=== PATIENT | female | born 1975 | race Caucasian/White ===

== ENCOUNTER → 2018-04-30 | Outpatient (CLI) | payer OTHER ==
[2018-04-30 18:20] LABS: HEMATOCRIT 36.6 % (37.0-47.0); MEAN CELL VOLUME 92 fl (78-100); MEAN CORPUSCULAR HEMOGLOBIN 30 pg (27-31); MEAN CORPUSCULAR HGB CONC 33 g/dL (33-37); MEAN PLATELET VOLUME 9.4 fl (7.4-10.4); PLATELET COUNT 285 K/mm3 (130-400); RED BLOOD COUNT 3.98 M/mm3 (4.10-5.30); RED CELL DISTRIBUTION WIDTH 12.4 % (11.5-14.5); WHITE BLOOD COUNT 8.4 K/mm3 (4.8-10.8)
[2018-04-30 19:09] LABS: BAND 1 % (0-10); LYMPHOCYTE 18 % (20-51); MONOCYTE 6 % (3-10); NEUTROPHILS 75 % (42-75)
== END ==
LOC: LAB 17:00
PROVIDERS: Family Medicine
DX: J03.90 Acute tonsillitis, unspecified (principal)

== ENCOUNTER → 2018-06-27 | Outpatient (CLI) | payer OTHER | LOC: RAD 15:15 | DX: M77.52 Other enthesopathy of left foot and ankle (principal) ==

== ENCOUNTER → 2019-05-11 | Outpatient (CLI) | payer OTHER | LOC: LAB 16:45 | DX: J02.9 Acute pharyngitis, unspecified (principal) ==

== ENCOUNTER 2023-01-30 11:58 | Emergency (ER) | payer OTHER ==
[2023-01-30] MEDS ORDERED: ARIPIPRAZOLE10 M1 PO (12:08)
[2023-01-30] MEDS ORDERED: LAMOTRIGINE200 MG PO (12:09)
[2023-01-30] MEDS ORDERED: ATORVASTATIN CA40 MG PO (12:09)
[2023-01-30] MEDS ORDERED: HYDROXYZINE HCL25 M1 PO (12:09)
[2023-01-30] MEDS ORDERED: PRAZOSIN (12:09)
[2023-01-30 12:33] LABS: BASO # 0.02 K/mm3 (0.02-0.10); EOS # 0.12 K/mm3 (0.04-0.40); EOS % 2.2 % (1.0-5.0); HEMATOCRIT 35.8 % (37.0-47.0); HEMOGLOBIN 11.6 g/dL (12.5-16.0); LYMPH# 1.93 K/mm3 (1.50-4.00); MEAN CELL VOLUME 93 fl (78-100); MEAN CORPUSCULAR HEMOGLOBIN 30 pg (27-31); MEAN CORPUSCULAR HGB CONC 32 g/dL (33-37); MEAN PLATELET VOLUME 9.1 fl (7.4-10.4); MONO # 0.39 K/mm3 (0.20-0.80); NEU # 2.93 K/mm3 (1.40-6.50); PLATELET COUNT 290 K/mm3 (130-400); RED BLOOD COUNT 3.85 M/mm3 (4.10-5.30); RED CELL DISTRIBUTION WIDTH 12.4 % (11.5-14.5); WHITE BLOOD COUNT 5.4 K/mm3 (4.8-10.8)
[2023-01-30 12:43] LABS: ALBUMIN 4.5 g/dL (3.5-5.0); POTASSIUM 4.3 mmol/L (3.5-5.1); SODIUM 141 mmol/L (136-145)
[2023-01-30 12:44] LABS: CALCIUM 9.8 mg/dL (8.3-10.5)
[2023-01-30 12:45] LABS: GLUCOSE 90 mg/dL (65-105)
[2023-01-30 12:46] LABS: TOTAL PROTEIN 7.6 g/dL (6.4-8.3)
[2023-01-30 12:47] LABS: CARBON DIOXIDE 26 mmol/L (22-29); TOTAL BILIRUBIN 0.3 mg/dL (0.2-1.2)
[2023-01-30 12:51] LABS: AST-SGOT 19 U/L (5-34)
[2023-01-30 12:52] LABS: ALT/SGPT 27 U/L (0-55)
[2023-01-30 13:00] LABS: D-DIMER 0.13 mg/L FEU (0.15-0.50); TROPONIN-I < 0.030 ng/mL (<0.030)
[2023-01-30 14:56] LABS: MAGNESIUM 2.03 mg/dL (1.60-2.60)
[2023-01-30 16:48] VITALS: BP 112/64
== END 2023-01-30 16:49 | disposition home or self-care (01) ==
LOC: ED 11:58
PROVIDERS: Nurse Practitioner
DX: I20.9 Angina pectoris, unspecified (principal); Z87.898 Personal history of other specified conditions; Z82.49 Family history of ischemic heart disease and other diseases of the circulatory system; Z28.310 Unvaccinated for COVID-19